=== PATIENT | female | born 1965 | race Asian ===

== ENCOUNTER → 2016-09-20 | Outpatient (CLI) | payer BC | LOC: FIMAGING 09:49 | PROVIDERS: ATTEND Internal Medicine | DX: Z12.31 Encounter for screening mammogram for malignant neoplasm of breast (principal); N83.202 Unspecified ovarian cyst, left side; D25.9 Leiomyoma of uterus, unspecified; N85.4 Malposition of uterus; E66.3 Overweight | CPT/HCPCS: G0202 ==

== ENCOUNTER → 2016-10-11 | Outpatient (CLI) | payer BC | LOC: FIMAGING 10:30 | PROVIDERS: ATTEND Internal Medicine | DX: Z12.39 Encounter for other screening for malignant neoplasm of breast (principal); N63 Unspecified lump in breast | CPT/HCPCS: G0206 ==

== ENCOUNTER → 2018-11-12 | Outpatient (CLI) | payer BC ==
[~2018-11-12] MED LIST: IOPAMIDOL (ISOVUE-300) 100 ML BTL ONE
== END ==
LOC: FIMAGING 15:48
PROVIDERS: ATTEND Internal Medicine
DX: M79.652 Pain in left thigh (principal); R93.7 Abnormal findings on diagnostic imaging of other parts of musculoskeletal system
CPT/HCPCS: Q9967

== ENCOUNTER → 2018-11-15 | Outpatient (CLI) | payer BC | LOC: FIMAGING 10:42 | PROVIDERS: ATTEND Internal Medicine | DX: S76.212A Strain of adductor muscle, fascia and tendon of left thigh, initial encounter (principal); R60.0 Localized edema ==